=== PATIENT | female | born 1965 | race Caucasian/White ===

== ENCOUNTER → 2017-01-08 | Outpatient (CLI) | payer BC ==
[~2017-01-08] MED LIST: AUGMENTIN875 MG PO; BACTRIM,SEPT1 TABLET PO; Cipro PO; FLAGYL500 MG PO; Flagyl PO; HYDROCODON-ACE1 EAC7 PO; KEFLEX500 MG PO; NAPROSYN500 MG PO; NO HOME MED; Percocet 10/325,Endo PO; PriLOSEC PO; Tylenol Extra Streng PO; Tylenol Regular Stre PO; VICODIN,LORT1 TABLET PO; ZYVOX600 MG PO
== END | disposition home or self-care (01) ==
LOC: NUC 08:18
DX: R14.0 Abdominal distension (gaseous) (principal); R19.4 Change in bowel habit; K59.00 Constipation, unspecified; R19.7 Diarrhea, unspecified; R11.0 Nausea; Z83.71 Family history of colonic polyps; Z80.0 Family history of malignant neoplasm of digestive organs
CPT/HCPCS: 78264; A9541